=== PATIENT | male | born 2000 | race Caucasian/White ===

== ENCOUNTER 2023-12-20 16:34 | Emergency (ER) | payer OTHER, MEDICAID | END 2023-12-20 19:42 | disposition home or self-care (01) | LOC: JP.ED 16:34 | DX: S99.921A Unspecified injury of right foot, initial encounter (principal); F17.210 Nicotine dependence, cigarettes, uncomplicated; X50.0XXA Overexertion from strenuous movement or load, initial encounter | CPT/HCPCS: 73630-26-RT; 73630-RT; 99283 ==